=== PATIENT | female | born 1935 | race Caucasian/White ===

== ENCOUNTER 2017-01-05 11:28 | Day surgery (SDC) | payer MEDICARE, BC ==
--- NOTE | ~2017-01-05 | OP ---
Record Of Operation [facility] [address] [place]. [address] NAME: CORNELIUS PATHAK : 31 STATUS : REG [facility] PAT#: [id number] AGE: 81 ADM/REG DATE : 01/05/17 MR#: [id number] REPORT SERV DATE: 01/05/17 DICTATED BY: PIETER AUGUSTE DATE: 01/05/17 REPORT STATUS : Draft TRANSCRIBED BY: MODL DATE: 01/05/17 DATE OF PROCEDURE: 01/05/2017 SURGEON: Pieter Auguste MD PIGGYBACK CLERK: None. PREPROCEDURE DIAGNOSIS: Severe stenosis left-sided posterior tibial artery. POSTPROCEDURE DIAGNOSIS: Severe stenosis left-sided posterior tibial artery. PROCEDURE PERFORMED: 1. Ultrasound access, right common femoral artery. 2. Aortogram. 3. Left lower extremity arteriogram. 4. Angioplasty of the left PT using a 3 x 210 balloon. ANESTHESIA: MAC and local. SPECIMENS: None. BLOOD LOSS: 20 mL. COMPLICATIONS: None. INDICATIONS: Juan Carlos is 81 years old and has severe PAD. She has had bilateral lower extremity bypasses. [facility] and had an ultrasound the same day showing severe stenosis in the posterior tibial artery. She was offered arteriogram. Risks, benefits, and alternatives were discussed. She understood and wished to proceed. OPERATIVE COURSE: The patient was brought to the operating room, placed in supine position on the operating room table. The patient had MAC anesthetic without complications. Bilateral groins were prepped and draped in sterile fashion. A time-out was performed to identify the correct patient, procedure, and site. We began by using an ultrasound to identify the right common femoral artery, it was patent and had moderate disease. We anesthetized the skin and accessed the artery under ultrasound guidance. There was significant scar tissue in the groin from prior operations. Once we had access, the wire was passed easily up into the abdominal aorta. The needle was removed and we placed a 5- [place] sheath. Over the wire, we passed the UF catheter and performed aortography from the L1 vertebral level demonstrating patency of the aortoiliac segment without significant flow- limiting stenosis in the common internal or external iliac arteries. We then passed the wire and catheter down the left iliac system to the common femoral level. We performed arteriogram here, demonstrating patency of the common femoral and profunda femoris arteries. The bypass was patent, albeit small and fills extremely slowly. We sized up to a longer 5- [place] sheath over the aortic bifurcation and brought a wire and trailblazer into the bypass Record Of Operation [facility] [address] [place]. [address] NAME: CORNELIUS PATHAK : 31 STATUS : REG [facility] PAT#: [id number] AGE: 81 ADM/REG DATE : 01/05/17 MR#: [id number] REPORT SERV DATE: 01/05/17 DICTATED BY: PIETER AUGUSTE DATE: 01/05/17 REPORT STATUS : Draft TRANSCRIBED BY: BACILIO DATE: 01/05/17 distally and performed more detailed arteriogram showing a small, but patent bypass graft. There was runoff through a string sign of a posterior tibial all the way down to the ankle. The ankle reconstituted as a normal-appearing vessel. We gave IV heparin and allowed adequate time for circulation. We got access across the severely stenotic posterior tibial using a 0.014 wire. We then brought up a 3 x 210 balloon and performed angioplasty for 3- 1/2 minutes at 12 atmospheres. Repeat angiogram demonstrated resolution of the entire stenosis with reconstitution of the posterior tibial to a normal size. When we reperformed the angiogram from the groin, the contrast at this time made it through the SFA bypass faster than the profunda femoris artery. This is in marked contrast to the preintervention imaging. Satisfied with the intervention, the wires and catheters were brought back to the right side of the patient. We performed right lower extremity arteriogram through the right sided sheath. This demonstrated patency of the bypass graft over here. Distally, there was a 50% stenosis at one of the distal valves. The bypass graft terminated at the below-knee popliteal artery in collaterals. There were no identifiable tibial vessels all the way down to the foot. The proximal AT, PT, and peroneal all appeared to be occluded. Runoff in the right leg appeared to be all through collateral vessels. Wires and catheters were removed. We removed the sheath and held pressure for 20 minutes. A pressure dressing was applied. The patient tolerated the procedure well. She was awakened and transferred to recovery in stable condition. MANSOOR/BACILIO Pieter Auguste MD / [id number] CC: MD Oj Ortiz M.D.
[~2017-01-05 11:28] MED LIST: ASAB PO; ATEN25 PO; BEN25 PO; BETIMOL0.5 % OPH; BISR PR; C1 PO; C2 PO; CARDCD180 PO; CARTIA XT180 MG/24 PO; CEFT2 PO; COUMADIN3 MG OR; COUMADIN3 MG PO; DSS PO; FERROUS SULF325 M1 PO; FESO4 PO; GUAIFENESI4 PO; HEPARIN; HYDROCHLOROT25 MG PO; IMDUR30 PO; IRON TAB PO; KAOPECTATE262 MG/15 PO; LACT30UDL PO; LEVOTHYROXIN50 MCG PO; LIPITOR10 PO; LOTENSIN HCT1 TA3 PO; LOVENOX40 SC; MAALOX PO; MOMUD PO; NITROSTAT0.4 MG SL; NORCO1 TA1 PO; NOVOLOG SC; PCET; PCET PO; PLAVIX PO; PR12.5R; PROAIR HFA INH; SYN075 PO; T PO; TIMOPTIC OCU0.25 % OP; ZOFRAN ODT4 MG PO
[2017-01-05 12:10] LABS: HEMATOCRIT 43.6 % (36.0-48.0); HEMOGLOBIN 14.5 g/dL (12.0-16.0)
[2017-01-05 12:16] LABS: INTERNATIONAL NORMAL RATI 1.2 UNITS (-)
[2017-01-05 12:18] LABS: PROTIME (NOT ORD) 14.6 SEC (12.0-14.5)
[2017-01-05 12:22] LABS: BUN (BLOOD UREA NITROGEN) 21 MG/DL (6-23); CALCIUM, SERUM 9.7 MG/DL (8.5-10.4); CHLORIDE, SERUM 100 MMOL/L (96-112); CO2 (CARBON DIOXIDE) 31 MMOL/L (24-34); CREATININE 0.58 MG/DL (0.55-1.02); GFR AFRICAN AMERICAN 99 ML/MIN (>=60); GFR NON AFRICAN AMERICAN 85 ML/MIN (>=60); GLUCOSE, SERUM 113 MG/DL (60-99); POTASSIUM, SERUM 3.3 MMOL/L (3.5-5.3); SODIUM, SERUM 140 MMOL/L (135-148)
== END 2017-01-05 20:30 | disposition home or self-care (01) ==
LOC: SDC 11:28 → SSU1 15:51
PROVIDERS: Student in an Organized Health Care Education/Training Program
PROC: 047S3ZZ Dilation of Left Posterior Tibial Artery, Percutaneous Approach (ICD-10-PCS; principal; 2017-01-05 12:45)
DX: I70.202 Unspecified atherosclerosis of native arteries of extremities, left leg (principal); I73.9 Peripheral vascular disease, unspecified; E03.9 Hypothyroidism, unspecified; I48.91 Unspecified atrial fibrillation; I25.10 Atherosclerotic heart disease of native coronary artery without angina pectoris; I27.2 Other secondary pulmonary hypertension; I10 Essential (primary) hypertension; Z79.01 Long term (current) use of anticoagulants; Z79.899 Other long term (current) drug therapy; Z91.048 Other nonmedicinal substance allergy status; Z91.040 Latex allergy status
CPT/HCPCS: 37228; 75625; 75716; 75774; 80048; 82962; 85014; 85018; 85610; 93005; A9270-GY; C1725; C1769; C1894; J0690; J3010; Q9966

== ENCOUNTER 2017-04-01 06:11 | Day surgery (SDC) | payer MEDICARE, BC ==
--- NOTE | ~2017-04-01 | OP ---
Record Of Operation [facility] [address] [place]. [address] NAME: CORNELIUS RANGEL : 31 [place] [facility] PAT#: [id number] AGE: 81 ADM/REG DATE : 04/01/17 MR#: [id number] REPORT SERV DATE: 04/01/17 DICTATED BY: PIETER AUGUSTE DATE: 04/01/17 REPORT STATUS : Draft TRANSCRIBED BY: MODTraci DATE: 04/01/17 DATE OF PROCEDURE: 04/01/2017 SENIOR MEDICAL BILLING SPECIALIST: Edd. 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 POSTPROCEDURE DIAGNOSES: 1. Critical stenosis in the right common femoral artery, 85%. 2. Critical stenosis of the origin of the right femoral-tibial vein graft, 90%. 3. Obliterated runoff. ANESTHESIA: MAC and local. PROCEDURES: 1. Ultrasound access of the left common femoral artery. 2. Aortogram. 3. Right lower extremity runoff. 4. Angioplasty of the common femoral lesion using a 6 mm standard balloon and a 7 mm drug- coated balloon. 5. Treatment of the proximal SFA using a 4 mm standard balloon and a 5 mm drug-coated balloon. ESTIMATED BLOOD LOSS: Minimal. COMPLICATIONS: None. INDICATIONS: Ms. Cornelius Rangel is 81 years old, who has had multiple vascular interventions including bilateral lower extremity bypass. During surveillance, she was found to have high velocities at the anastomoses with an open wound on her heel. She was offered intervention. Risks, benefits, and alternatives were discussed. She understood and wished to proceed. OPERATIVE COURSE: The patient was brought to the operating room and placed in supine position on the operating room table. The patient had MAC anesthetic without complications. Bilateral groins were prepped and draped in a sterile fashion. A time-out was performed, identified the correct patient, procedure, and site. We began by using the ultrasound to identify the left common femoral artery and it was patent with moderate disease. We anesthetized the skin and accessed the artery under ultrasound guidance. A copy of this picture was placed on the chart for review. Once we had access, a wire was passed through the abdominal aorta. The needle was removed. We placed a 5-[place] sheath over the wire. We passed a UF catheter and placed at the L1 vertebral level and performed aortography demonstrating patency of the aortoiliac segments without flow-limiting stenosis in the aorta, common, or external iliac arteries. We passed the wire and catheter down to the right external iliac artery and performed right lower extremity arteriogram demonstrating severe lesion in the mid common femoral artery followed by a critical stenosis in the proximal fem to distal vein graft. The distal vein graft was patent and terminated in Record Of Operation [facility] [address] [place]. [address] NAME: CORNELIUS RANGEL : 31 [place]US : [place] [facility] PAT#: [id number] AGE: 81 ADM/REG DATE : 04/01/17 MR#: [id number] REPORT SERV DATE: 04/01/17 DICTATED BY: PIETER AUGUSTE DATE: 04/01/17 REPORT STATUS : Draft TRANSCRIBED BY: BACILIO DATE: 04/01/17 collaterals without any dominant runoff to the foot. IV heparin was given. We sized up to a 6-[place] sheath. We then got wire access across both lesions in the common femoral and superficial femoral arteries. We angioplastied the common femoral lesion using a 6 mm standard balloon at 8 atmospheres for 2 minutes followed by a drug-coated balloon, which was 7 mm at 8 atmospheres for 3 minutes. We then angioplastied the proximal SFA lesion using a 4 mm balloon at 8 atmospheres for 2 minutes followed by a drug-coated balloon 5 mm at 8 atmospheres for 3 minutes. Repeat angiogram demonstrated resolution of the SFA and common femoral stenoses. There is a small insignificant dissection in the mid common femoral artery. This was not flow limiting and did not appear to inhibit flow. Satisfied with the intervention, the wires and catheter were withdrawn. We wired out the sheath and brought it back over to the left common femoral artery. The wire and sheath were pulled and pressure was held for 20 minutes. A pressure dressing was applied. The patient tolerated the procedure well. She was awakened and transferred to recovery in stable condition. MANSOOR/BACILIO Pieter Auguste MD / [id number] CC: MD Oj Ortiz M.D.
[2017-04-01 06:38] LABS: HEMATOCRIT 45.3 % (36.0-48.0); HEMOGLOBIN 14.5 g/dL (12.0-16.0)
[2017-04-01 06:44] LABS: INTERNATIONAL NORMAL RATI 1.5 UNITS (-); PARTIAL THROMBO TIME 28.4 SEC (22.5-37.2)
[2017-04-01 06:45] LABS: PROTIME (NOT ORD) 17.7 SEC (12.0-14.5)
[2017-04-01 06:50] LABS: BUN (BLOOD UREA NITROGEN) 23 MG/DL (6-23); CALCIUM, SERUM 9.6 MG/DL (8.5-10.4); CHLORIDE, SERUM 107 MMOL/L (96-112); CO2 (CARBON DIOXIDE) 34 MMOL/L (24-34); CREATININE 0.63 MG/DL (0.55-1.02); GFR AFRICAN AMERICAN 96 ML/MIN (>=60); GFR NON AFRICAN AMERICAN 83 ML/MIN (>=60); GLUCOSE, SERUM 112 MG/DL (60-99); POTASSIUM, SERUM 4.5 MMOL/L (3.5-5.3); SODIUM, SERUM 146 MMOL/L (135-148)
[2017-04-01] MEDS ORDERED: PLAVIX PO (14:00)
== END 2017-04-01 17:25 | disposition home or self-care (01) ==
LOC: SDC 06:11 → SSU1 10:25
PROVIDERS: Student in an Organized Health Care Education/Training Program
PROC: 047L3Z1 Dilation of Left Femoral Artery using Drug-Coated Balloon, Percutaneous Approach (ICD-10-PCS; principal; 2017-04-01 07:45)
DX: T82.858A Stenosis of other vascular prosthetic devices, implants and grafts, initial encounter (principal); I73.9 Peripheral vascular disease, unspecified; I48.91 Unspecified atrial fibrillation; E78.5 Hyperlipidemia, unspecified; E03.9 Hypothyroidism, unspecified; E11.9 Type 2 diabetes mellitus without complications; E61.1 Iron deficiency; I10 Essential (primary) hypertension; Z98.890 Other specified postprocedural states; Z86.73 Personal history of transient ischemic attack (TIA), and cerebral infarction without residual deficits; Z82.49 Family history of ischemic heart disease and other diseases of the circulatory system; Z79.899 Other long term (current) drug therapy; Z79.01 Long term (current) use of anticoagulants; Z98.41 Cataract extraction status, right eye; Z98.42 Cataract extraction status, left eye
CPT/HCPCS: 37224; 75625; 75710; 76937; 80048; 82962; 85014; 85018; 85610; 85730; 93005; A9270-GY; C1725; C1769; C1894; J0690; J2370; J3010; Q9967